=== PATIENT | male | born 1950 | race Hispanic/Latino ===

== ENCOUNTER 2019-03-14 22:26 | Emergency (ER) | payer OTHER ==
[2019-03-14] MEDS ORDERED: FENTANYL CITR 100 MCG/2 ML ONE (22:53)
[2019-03-14] MEDS ORDERED: PANTOPRAZOLE 40 MG INJ ONE (22:53)
[2019-03-14 23:33] LABS: Protime INR 2.06
[2019-03-14 23:35] LABS: Absolute Lymphocytes (CBC) 1.2 K/uL (0.7-4.9); Basophils % 1.2 % (0-1.3); Lymphocytes % 19.7 % (15.3-44.8); MPV 9.5 fL (7.6-11.3); RBC Red Blood Cell Count 4.36 M/uL (4.33-5.43)
[2019-03-14 23:52] LABS: ALT/SGPT 48 U/L (12-78); AST/SGOT 77 U/L (15-37); Albumin 2.8 g/dL (3.4-5.0); Alkaline Phosphatase 159 U/L (45-117); BUN Blood Urea Nitrogen 17 mg/dL (7-18); Bicarbonate 31 mmol/L (21-32); Bilirubin Direct 0.2 mg/dL (0-0.2); Bilirubin Total 0.3 mg/dL (0.2-1.0); Glucose Level 88 mg/dL (74-106); Lipase 191 U/L (73-393); Magnesium 2.2 mg/dL (1.8-2.4); NT PRO-BNP 714 pg/mL (<125); Protein, Total 7.1 g/dL (6.4-8.2); Sodium Level 141 mmol/L (136-145); Troponin (Emerg Dept Use Only) < 0.02 ng/mL (0.0-0.045)
--- NOTE | 2019-03-15 00:22 | EDPHYS ---
Physician Documentation [facility] Name: Crescencio Cox Sr Age: 68 yrs Sex: Male : 1950 Arrival Date: 03/14/2019 Time: 22:29 Bed 7 Private MD: ED Physician Live Gardiner HPI: 03/14 22:49 This 68 yrs old Male presents to ER via Ambulatory with complaints of Chest jr8 Pain. 22:49 The patient or guardian reports chest pain that is located primarily in the substernal jr8 area. Onset: acutely, today. The pain does not radiate. Associated signs and symptoms: The patient has no apparent associated signs or symptoms. The chest pain is described as dull. Duration: The patient or guardian reports a single episode, that is still ongoing. Modifying factors: The symptoms are alleviated by nothing. the symptoms are aggravated by nothing. Severity of pain: At its worst the pain was mild in the emergency department the pain is unchanged. It is unknown whether or not the patient has had similar symptoms in the past. The patient has not recently seen a physician. Patient stated that he had open heart surgery about 2 months ago. Had been recovering well since then. Today while sitting watching the football game started to have pain to chest without radiation, shortness of breath, sweating, or nausea. Stated that he did have some spice food tonight that he normally does not have but does not know if that is the cause or not . Historical: - Allergies: 22:53 No Known Allergies; rv - PMHx: 22:53 Aneurysm; Hypertension; High Cholesterol; rv - PSHx: 22:53 aneurysm repair; valvle replacement; rv - Immunization history:: Adult Immunizations up to date. - Social history:: Smoking status: Patient/guardian denies using tobacco, the patient reports quitting approximately 16 years ago. - Ebola Screening: : No symptoms or risks identified at this time. ROS: 22:49 Eyes: Negative for injury, pain, redness, and discharge, ENT: Negative for injury, jr8 pain, and discharge, Neck: Negative for injury, pain, and swelling, Respiratory: Negative for shortness of breath, cough, wheezing, and pleuritic chest pain, Abdomen/GI: Negative for abdominal pain, nausea, vomiting, diarrhea, and constipation, Back: Negative for injury and pain, MS/Extremity: Negative for injury and deformity, Skin: Negative for injury, rash, and discoloration, Neuro: Negative for headache, weakness, numbness, tingling, and seizure. 22:49 Cardiovascular: Positive for chest pain, Negative for edema, orthopnea, palpitations, paroxysmal nocturnal dyspnea. Exam: 22:49 Eyes: Pupils equal round and reactive to light, extra-ocular motions intact. Lids and jr8 lashes normal. Conjunctiva and sclera are non-icteric and not injected. Cornea within normal limits. Periorbital areas with no swelling, redness, or edema. ENT: Nares patent. No nasal discharge, no septal abnormalities noted. Tympanic membranes are normal and external auditory canals are clear. Oropharynx with no redness, swelling, or masses, exudates, or evidence of obstruction, uvula midline. Mucous membranes moist. Neck: Trachea midline, no thyromegaly or masses palpated, and no cervical lymphadenopathy. Supple, full range of motion without nuchal rigidity, or vertebral point tenderness. No Meningismus. Cardiovascular: Regular rate and rhythm with a normal S1 and S2. No gallops or rubs. Systolic murmur present best heard at the left sternal border 2nd ICS. Normal PMI, no JVD. No pulse deficits. Respiratory: Lungs have equal breath sounds bilaterally, clear to auscultation and percussion. No rales, rhonchi or wheezes noted. No increased work of breathing, no retractions or nasal flaring. Back: No spinal tenderness. No costovertebral tenderness. Full range of motion. MS/ Extremity: Pulses equal, no cyanosis. Neurovascular intact. Full, normal range of motion. Neuro: Awake and alert, GCS 15, oriented to person, place, time, and situation. Cranial nerves II-XII grossly intact. Motor strength 5/5 in all extremities. Sensory grossly intact. Cerebellar exam normal. Normal gait. 22:49 Chest/axilla: Inspection: incisional scar present, Palpation: tenderness, that is mild, that does not reproduce the patient's complaints. 22:49 Abdomen/GI: Inspection: abdomen appears normal, Bowel sounds: active, all quadrants, Palpation: soft, in all quadrants, mild abdominal tenderness, in the epigastric area, mass, is not appreciated, rebound tenderness, is not appreciated, voluntary guarding, is not appreciated, involuntary guarding, is not appreciated, no appreciated organomegaly, Indicators: McBurney's point is not tender, Waite's sign is negative, Rovsing's sign is negative, Liver: tenderness, is not appreciated, Pain to epigastric region is reproducing pain that patient has been feeling in chest region . 22:49 Skin: Appearance: Color: pale, Temperature: cool, Moisture: normal moisture, petechiae, not noted, ecchymosis, not noted. Vital Signs: 22:40 BP 135 / 85; Pulse 85; Resp 18; Pulse Ox 100% ; ea 22:46 Temp 97.5; ea 22:54 Weight 83.91 kg; Height 6 ft. 2 in. (187.96 cm); rv 23:30 BP 103 / 69; Pulse 88; Resp 18; Pulse Ox 99% ; ea 03/15 00:36 BP 108 / 74; Pulse 93; Resp 16; Pulse Ox 98% on R/A; ao 03/14 22:54 Body Mass Index 23.75 (83.91 kg, 187.96 cm) rv MDM: 03/14 22:34 Patient medically screened. jr8 03/15 00:16 Data reviewed: vital signs, nurses notes, lab test result(s), EKG, radiologic studies, jr8 plain films. Data interpreted: Pulse oximetry: on room air is 99 %. Interpretation: normal. Counseling: I had a detailed discussion with the patient and/or guardian regarding: the historical points, exam findings, and any diagnostic results supporting the discharge/admit diagnosis, lab results, radiology results, the need for outpatient follow up, a enterprise engineer, to return to the emergency department if symptoms worsen or persist or if there are any questions or concerns that arise at home. ED course: Patient post treatment has complete resolution of symptoms. Discussed negative findings on labs and ECG. That he does have Left pleural effusion present. Patient stated that he has had two pleural effusions in the past that required pleuracentesis. Denies shortness of breath at this time. Patient has CT surgery appointment in the AM. Will d/c home to f/u with him. Gave blood work and images to show him tomorrow. Strict return precautions given if patient were to have CP or cardiac equivalent pain again. Patient understood all instructions . 03/14 22:34 Order name: Basic Metabolic Panel; Complete Time: 23:54 8 03/14 22:34 Order name: CBC with Diff; Complete Time: 23:42 jr8 03/14 22:34 Order name: LFT's; Complete Time: 23:54 jr8 03/14 22:34 Order name: Magnesium; Complete Time: 23:54 8 03/14 22:34 Order name: NT PRO-BNP; Complete Time: 23:54 8 03/14 22:34 Order name: PT-INR; Complete Time: 23:42 8 03/14 22:34 Order name: Troponin (emerg Dept Use Only); Complete Time: 23:54 jr8 03/14 22:34 Order name: XRAY Chest (1 view) [facility] 03/14 22:34 Order name: EKG; Complete Time: 22:35 [facility] 03/14 22:47 Order name: Lipase 03/14 23:23 Order name: Lipase; Complete Time: 23:54 EDIN 03/14 22:34 Order name: Cardiac monitoring; Complete Time: 22:40 [facility] 03/14 22:34 Order name: EKG - Nurse/Tech; Complete Time: 22:40 8 03/14 22:34 Order name: IV Saline Lock; Complete Time: 22:46 8 03/14 22:34 Order name: Labs collected and sent; Complete Time: 22:47 8 03/14 22:34 Order name: O2 Per Protocol; Complete Time: 22:40 [facility] 03/14 22:34 Order name: O2 Sat Monitoring; Complete Time: 22:40 jr8 Administered Medications: 03/14 23:02 Drug: fentaNYL (PF) 25 mcg {Note: RASS 0.} Route: IVP; Site: right antecubital; ea 23:40 Follow up: Response: No adverse reaction; Pain is decreased; RASS: Alert and Calm (0) ea 23:03 Drug: ProTONIX 40 mg Route: IVP; Site: right antecubital; ea 23:41 Follow up: Response: No adverse reaction ea Disposition: 03/15 02:09 Co-signature as Attending Physician, Liev Gardiner MD did not see or evaluate patient. ps1 Signing chart for administrative purposes. Not an endorsement of care. . Disposition: 03/15/19 00:20 Discharged to Home. Impression: Chest pain, unspecified. - Condition is Stable. - Discharge Instructions: Nonspecific Chest Pain, Pleural Effusion. - Medication Reconciliation Form, Thank You Letter, Antibiotic Education, Prescription Opioid Use form. - Follow up: Private Physician; When: Tomorrow; Reason: Recheck today's complaints, Continuance of care, Re-evaluation by your physician. - Problem is new. - Symptoms have improved. Signatures: Dispatcher [employer] [facility] Mckay Menchaca PA PA jr8 Wolf Wharton, RN RN Charu Henderson RN RN ea Singer, Phillip, MD MD ps1 Vicente, Ronaldo, RN RN rv Corrections: (The following items were deleted from the chart) 03/14 23:23 22:48 LIPASE+C.LAB.BRZ ordered. [facility] 03/15 00:39 00:20 03/15/2019 00:20 Discharged to Home. Impression: Chest pain, unspecified. ao Condition is Stable. Forms are Medication Reconciliation Form, Thank You Letter, Antibiotic Education, Prescription Opioid Use. Follow up: Private Physician; When: Tomorrow; Reason: Recheck today's complaints, Continuance of care, Re-evaluation by your physician. Problem is new. Symptoms have improved. jr8
--- NOTE | 2019-03-15 00:22 | ER ---
Nurse's Notes [facility] Name: Crescencio Cox Sr Age: 68 yrs Sex: Male : 1950 Arrival Date: 03/14/2019 Time: 22:29 Bed 7 Private MD: Diagnosis: Chest pain, unspecified Presentation: 03/14 22:39 Presenting complaint: Patient states: chest pain started an hour ago. could not rv describe the kind of pain. Transition of care: patient was not received from another setting of care. Onset of symptoms was March 14, 2019 at 21:40. Risk Assessment: Do you want to hurt yourself or someone else? Patient reports no desire to harm self or others. Initial Sepsis Screen: Does the patient meet any 2 criteria? No. Patient's initial sepsis screen is negative. Does the patient have a suspected source of infection? No. Patient's initial sepsis screen is negative. Care prior to arrival: None. 22:39 Method Of Arrival: Ambulatory rv 22:39 Acuity: KULWANT 3 rv Historical: - Allergies: 22:53 No Known Allergies; rv - PMHx: 22:53 Aneurysm; Hypertension; High Cholesterol; rv - PSHx: 22:53 aneurysm repair; valvle replacement; rv - Immunization history:: Adult Immunizations up to date. - Social history:: Smoking status: Patient/guardian denies using tobacco, the patient reports quitting approximately 16 years ago. - Ebola Screening: : No symptoms or risks identified at this time. Screenin:46 Abuse screen: Denies threats or abuse. Nutritional screening: No deficits noted. ea Tuberculosis screening: No symptoms or risk factors identified. Fall Risk IV access (20 points). Assessment: 23:00 General: Appears in no apparent distress. Behavior is calm. Pain: Complains of pain in ea epigastric area Pain does not radiate. Pain began 1 hour ago. Neuro: Level of Consciousness is awake, alert, obeys commands, Oriented to person, place, time, situation. Cardiovascular: Patient's skin is warm and dry. Respiratory: Airway is patent Respiratory effort is even, unlabored, Respiratory pattern is regular, symmetrical. Derm: Skin is dry, Skin is pale, Skin temperature is warm. 03/15 00:36 Reassessment: DC instructions given to Patient and patient agree with POC and to follow ao up with PCP and cardiology. Pt had no other questions at this time. Vital Signs: 03/14 22:40 BP 135 / 85; Pulse 85; Resp 18; Pulse Ox 100% ; ea 22:46 Temp 97.5; ea 22:54 Weight 83.91 kg; Height 6 ft. 2 in. (187.96 cm); rv 23:30 BP 103 / 69; Pulse 88; Resp 18; Pulse Ox 99% ; ea 03/15 00:36 BP 108 / 74; Pulse 93; Resp 16; Pulse Ox 98% on R/A; ao 03/14 22:54 Body Mass Index 23.75 (83.91 kg, 187.96 cm) rv ED Course: 03/14 22:29 Patient arrived in ED. ag3 22:34 Mckay Menchaca PA is PHCP. jr8 22:34 Live Gardiner MD is Attending Physician. jr8 22:39 Anatoliy Wahl, ALBERTO is Primary Nurse. rv 22:40 Wolf Wharton, ALBERTO is Primary Nurse. ao 22:40 Triage completed. rv 22:46 Patient maintains SpO2 saturation greater than 95% on room air. ea 22:47 part time on. Pulse ox on. NIBP on. ea 22:47 Arm band placed on right wrist. Patient placed in an exam room, on a stretcher, on ea pulse oximetry. 22:47 Patient has correct armband on for positive identification. Bed in low position. Call ea light in reach. Side rails up X2. 22:55 XRAY Chest (1 view) In Process Unspecified. EDMS 23:00 Inserted saline lock: 20 gauge in right antecubital area, using aseptic technique. ao Blood collected. 03/15 00:38 No provider procedures requiring assistance completed. IV discontinued, intact, ao bleeding controlled, No redness/swelling at site. Pressure dressing applied. Administered Medications: 03/14 23:02 Drug: fentaNYL (PF) 25 mcg {Note: RASS 0.} Route: IVP; Site: right antecubital; ea 23:40 Follow up: Response: No adverse reaction; Pain is decreased; RASS: Alert and Calm (0) ea 23:03 Drug: ProTONIX 40 mg Route: IVP; Site: right antecubital; ea 23:41 Follow up: Response: No adverse reaction ea Outcome: 03/15 00:20 Discharge ordered by MD. hinojosa 00:38 Discharged to home ambulatory. ao 00:38 Condition: stable 00:38 Discharge instructions given to patient, Instructed on discharge instructions, follow up and referral plans. Demonstrated understanding of instructions, follow-up care, medications. 00:39 Patient left the ED. ao Signatures: Dispatcher [employer] EDMS Mckay Menchaca PA PA jr8 Ortiz, Alex, RN RN ao Antunez, Elena RN Anatoliy Bailey ea, RN Mary Hammer
[2019-03-15 01:49] VITALS: TEMP 97.5
[2019-03-15 01:51] VITALS: BP 108/74; O2SAT 98
--- NOTE | 2019-03-15 08:10 | RAD REPORT ---
EXAM DESCRIPTION: RAD - Chest Single View - 03/14/2019 10:57 pm CLINICAL HISTORY: CHEST PAIN Chest pain. COMPARISON: No comparisons FINDINGS: Portable technique limits examination quality. Haziness is present in the left lung base likely representing a moderate-size left lower lobe infiltr ate with pleural effusion. The heart is likely enlarged with changes of a prior CABG. No displaced fr actures.
--- NOTE | 2019-03-15 20:48 | EKG ---
Test Date: 2019-03-14 Test Time: 22:39:34 Live Ammunition Inspector: LIYAH MEASUREMENT RESULTS: Intervals: Rate: 86 PA: 198 QRSD: 94 QT: 384 QTc: 459 [place]: P: 76 PA: 198 QRS: 81 T: 42 INTERPRETIVE STATEMENTS: Normal sinus rhythm Normal ECG No previous ECG available for comparison Electronically Signed On 03-15-19 20:46:45 SOFTWARE PACKAGING ENGINEER by Uil Li
== END 2019-03-15 00:39 | disposition home or self-care (01) ==
LOC: ER 22:26
DX: R07.9 Chest pain, unspecified (principal); I10 Essential (primary) hypertension; Z95.4 Presence of other heart-valve replacement
CPT/HCPCS: 93005; 85025; 80048; 36415; 83735; 85610; 80076; 84484; 83690; 83880; 71045; 96375; 96374; 99285; C9113; J3010

== ENCOUNTER 2019-04-27 17:07 | Emergency (ER) | payer OTHER ==
[2019-04-27] MEDS ORDERED: ETOMIDATE 20 MG/10 ML VIAL IV ONE (17:08)
[2019-04-27] MEDS ORDERED: SUCCINYLCHOLINE 20 MG/ML (10 ML) IV ONE (17:08)
[2019-04-27] MEDS ORDERED: ASPIRIN 81 MG CHEWABLE TABLET ONE (17:15)
[2019-04-27] MEDS ORDERED: MORPHINE 4 MG/ML SYR ONE (17:33)
[2019-04-27] MEDS ORDERED: ONDANSETRON 4 MG/2 ML VIAL ONE (17:33)
[2019-04-27 17:34] LABS: Absolute Lymphocytes (CBC) 1.8 K/uL (0.7-4.9); Basophils % 1.1 % (0-1.3); Hematocrit 38.5 % (39.6-49.0); Lymphocytes % 16.8 % (15.3-44.8); MPV 8.8 fL (7.6-11.3); RBC Red Blood Cell Count 4.95 M/uL (4.33-5.43)
[2019-04-27 17:41] LABS: Protime INR 1.63
[2019-04-27 17:56] LABS: Albumin 3.4 g/dL (3.4-5.0); Bilirubin Direct 0.1 mg/dL (0-0.2); Bilirubin Total 0.3 mg/dL (0.2-1.0); Magnesium 2.2 mg/dL (1.8-2.4); Potassium 3.5 mmol/L (3.5-5.1); Protein, Total 7.9 g/dL (6.4-8.2); Troponin (Emerg Dept Use Only) 0.07 ng/mL (0.0-0.045)
--- NOTE | 2019-04-27 18:05 | RAD REPORT ---
EXAM DESCRIPTION: CT - Angio Aorta For Dissection - 04/27/2019 5:50 pm CLINICAL HISTORY: r/o dissection, hx of aortic aneurysm repair COMPARISON: None. TECHNIQUE: Dynamically enhanced 3 mm thick images of the chest, abdomen, and upper pelvis were obtai paris during administration of approximately 150mL Isovue 370 IV contrast. Sagittal and coronal reconst ruction images were generated using MIP and reviewed. Exam utilizes a protocol to evaluate entire cou rse of the aorta. All CT scans are performed using dose optimization technique as appropriate and may include automated exposure control or mA/KV adjustment according to patient size. FINDINGS: Aortic valve surgical replacement changes are present. There are postsurgical changes to t he root of the aorta and cardiac bypass changes. Sternotomy wires are in place. Soft tissue surrounds the root of the aorta believed to be postsurgical change. There is no extravasation of contrast. Byp ass artery extending off of the right-side of the repaired aortic root shows no stenosis. Aortic arch is normal in diameter. Three vessel configuration noted with no great vessel origins sten oses. Vertebral artery origins are unremarkable as well. The thoracic and abdominal aorta are without stenosis, dissection or acute finding. Atherosclerotic changes are mild. Pulmonary arteries are normal as well. Heart size is prominent. No pericardial effusion. Lung parenchymal opacification posterior gutter on the left is favored to be atelectasis rather than pneumonia. Interstitial and alveolar opacities are scattered throughout the remainder of the lung fie lds. A small left pleural effusion is present. No right-sided pleural effusion. No pneumothorax. No abnormal mediastinal or hilar mass or lymphadenopathy seen. No chest wall mass or abnormal axillar y lymphadenopathy. Celiac, superior mesenteric and inferior mesenteric arteries are normal. The liver and pancreas show no suspicious findings. No gallbladder or biliary tree abnormality. Heterogeneous enhancement of the spleen is noted. This is not uncommon on a CT angio study. Both kidneys show heterogeneous enhancement with numerous areas of diminished enhancement in the aditya pheral cortex. Single renal artery supply each kidney an are normal in appearance. No mass or abnorm al lymphadenopathy. Stomach is distended but not dilated with food and fluid. Large and small bowel are not dilated. Sigm oid diverticulosis is present without diverticulitis. No free air, free fluid or inflammatory strandi ng. No urinary bladder abnormality. Disc and bony degenerative changes are present. No acute or path ologic bone process. IMPRESSION: No acute aortic abnormality identifiable. Postsurgical changes are noted from aortic enid ve replacement and there are surgical changes evident near the root of the aorta. Soft tissue attenuation surrounding the root of the aorta is suspected to be chronic. There is no ext ravasation of contrast. The bypass vessel extending from the right lateral aortic root shows no suspi cious finding. Atelectasis versus pneumonia posterior gutter on the left. There is a small left pleural effusion. Interstitial and alveolar opacities scattered throughout the lung nelson. Collective findings favor a failure or volume overload pattern. Heterogeneity of the renal parenchymal enhancement. Renal arteries are normal. This could be bilatera l pyelonephritis or could be hypoperfusion from diminished cardiac function. No other significant findings on chest, abdomen and upper pelvis examination.
--- NOTE | 2019-04-27 18:06 | RAD REPORT ---
EXAM DESCRIPTION: RAD - Chest Single View - 04/27/2019 5:34 pm CLINICAL HISTORY: CHEST PAIN COMPARISON: Chest Single View dated 03/14/2019Portable March 14, 2019 TECHNIQUE: AP portable chest image was obtained 04/27/2019 5:34 pm . FINDINGS: Lungs are underinflated compared to the prior examination. Interstitial and alveolar opaci ties are scattered in the lung nelson. Heart size normal for portable imaging. Vasculature not outsid e of normal range. Trachea is midline. Sternotomy wires are in place. Cardiac valve surgical changes noted. No pneumothorax present. Small left pleural effusions suspected with left base atelectasis and /or infiltrate. No acute bony abnormality seen. No acute aortic findings suspected. IMPRESSION: Interstitial and alveolar opacities are present. This could be failure or volume overloa d. Small left pleural effusion with infiltrate and/ or atelectasis left base.
[2019-04-27] MEDS ORDERED: RSI MEDICATION KIT IV ONE (18:09)
[2019-04-27] MEDS ORDERED: HEPARIN 5000 UNIT/ML 1 ML VIAL ONE (18:20)
[2019-04-27] MEDS ORDERED: HEPARIN/D5W 25,000 UNIT/500 ML BAG IV ONE (18:20)
[2019-04-27] MEDS ORDERED: MIDAZOLAM HCL 2 MG/2 ML INJ ONE (18:22)
[2019-04-27] MEDS ORDERED: NA CHLORIDE 0.9% 2,000 ML ONE (18:22)
[2019-04-27] MEDS ORDERED: propofoL 1,000 MG/100 ML VIAL IV ONE (18:29)
[2019-04-27] MEDS ORDERED: FENTANYL CITR 100 MCG/2 ML ONE (18:29)
--- NOTE | 2019-04-27 18:36 | ER ---
Nurse's Notes [facility] Name: Crescencio Cox Sr Age: 68 yrs Sex: Male : 1950 Arrival Date: 04/27/2019 Time: 17:09 Bed 4 Private MD: Diagnosis: Acute pulmonary edema;ST elevation (STEMI) myocardial infarction of inferior wall;Acute respiratory failure Presentation: 04/27 17:20 Presenting complaint: Patient states: Chest pain started about 10 minutes ago. ca1 Complains of severe nausea and dizzziness. Transition of care: patient was not received from another setting of care. Onset of symptoms was April 27, 2019. Risk Assessment: Do you want to hurt yourself or someone else? Patient reports no desire to harm self or others. Initial Sepsis Screen: Does the patient meet any 2 criteria? No. Patient's initial sepsis screen is negative. Does the patient have a suspected source of infection? No. Patient's initial sepsis screen is negative. Care prior to arrival: None. 17:20 Method Of Arrival: Wheelchair ca1 17:20 Acuity: KULWANT 1 ss Triage Assessment: 17:20 General: Appears distressed, uncomfortable, Behavior is cooperative, appropriate for bp age, anxious, PT MOVED FROM RM 28 FOR ACUITY. CONCERNING EKG CHANGES NOTED ON MONITOR. Pain: Complains of pain in chest. EENT: No deficits noted. Neuro: No deficits noted. Cardiovascular: Rhythm is irregular. Respiratory: Airway is patent Respiratory effort is even, unlabored. GI: No signs and/or symptoms were reported involving the gastrointestinal system. : No signs and/or symptoms were reported regarding the genitourinary system. Derm: No deficits noted. Musculoskeletal: No deficits noted. Historical: - Allergies: 18:21 No Known Allergies; ss - PMHx: 17:21 Aneurysm; High Cholesterol; Hypertension; ca1 - PSHx: 17:21 aneurysm repair; valvle replacement; ca1 - Immunization history:: Adult Immunizations unknown. - Coronavirus screen:: The patient has NOT traveled to [place], [place], or [place] in the past 14 days. The patient has NOT had contact with known/suspected case of Coronavirus?. - Family history:: not pertinent. - Social history:: Smoking status: unknown. - Hospitalizations: : No recent hospitalization is reported. - Ebola Screening: : Patient negative for fever greater than or equal to 101.5 degrees Fahrenheit, and additional compatible Ebola Virus Disease symptoms Patient denies exposure to infectious person Patient denies travel to an Ebola-affected area in the 21 days before illness onset No symptoms or risks identified at this time. Screenin:21 Abuse screen: Denies threats or abuse. Denies injuries from another. Nutritional bp screening: No deficits noted. Tuberculosis screening: No symptoms or risk factors identified. Fall Risk None identified. Assessment: 17:10 Reassessment: pt is in distress right now, IV established, EKG performed x2 Dr. Mason ch notified. Charge nurse notified. family friend contacted. pt is very poor historian, states he thinks he is dying and cannot remember. pt denies taking blood thinners, but doesn't know. 17:21 General: SEE TRIAGE NOTE. bp 17:33 Reassessment: PT TO CT WITH RN AND TECH. bp 17:40 Reassessment: Pt's friend reports pt takes Coumadin, Dr. Mason was notified. . aa5 17:49 Reassessment: Transfer initiated with [facility]. 17:59 Reassessment: EKG faxed to [employer] Deburrer at [facility] and chemical laboratory assistant as requested by transfer center. 18:12 Reassessment: setup for intubation, provider at bedside. em 18:20 Reassessment: Life Flight ETA 20 minutes. Attempted to call report to [facility] ss chemical laboratory assistant who is requesting to call back again in approx 5 minutes. 18:30 Reassessment: Pt is sedated and intubated, assisted ventilations via ventilator. Pt aa5 being continuously suctioned by RT at bedside, large amount of pink frothy secretions noted by RT. Pt's fingers are cyanotic, feet are cyanotic, pt's skin is cool/dry. . 18:34 Reassessment: Report given to ALBERTO Gay. 19:00 Reassessment: report given to life flight, pt intubated and sedated. em 04/28 00:30 Pain: Pain does not radiate. Pain began suddenly. 00:31 Reassessment: pt moved to room 4 due to critical condition. report given to eulalio and perry ho. Vital Signs: 02/04 17:05 BP 125 / 88; Pulse 122; Resp 40; Pulse Ox 89% on R/A; Pain 10/10; ch 17:25 BP 110 / 78; Pulse 105; Resp 39; Pulse Ox 93% on 4 lpm NC; ss 17:29 BP 102 / 74; Pulse 112; Resp 30; Temp 97.5; Pulse Ox 92% ; bp 17:37 BP 101 / 64; Pulse 110; Resp 28 S; Pulse Ox 96% on Nebulizer Mask; em 17:55 BP 106 / 56; Pulse 113; Resp 24; Pulse Ox 97% on Nebulizer Mask; em 17:55 BP 94 / 74; Pulse 132; Resp 20 A; Pulse Ox 97% on 100% FiO2 ETT vent; em 18:25 BP 104 / 91; Pulse 124; Pulse Ox 97% on 100% FiO2 ETT vent; em 18:30 BP 95 / 78; Pulse 136; Resp 20 A; Temp 98.8(C); Pulse Ox 100% on 100% FiO2 ETT vent; em 18:36 BP 93 / 70; Pulse 134; Resp 19 A; em 18:38 Weight 80 kg; ss 18:39 BP 93 / 70; Pulse 135; Resp 20 A; Temp 98.6(C); Pulse Ox 100% on 100% FiO2 ETT vent; em 18:45 BP 95 / 78; Pulse 134; Resp 18; Pulse Ox 100% on 100% FiO2 ETT vent; em 18:54 BP 98 / 87; Pulse 128; Resp 20 A; Temp 99.0(C); Pulse Ox 100% on 100% FiO2 ETT vent; em 19:00 BP 95 / 81; Pulse 129; Resp 20 A; Pulse Ox 100% on 100% FiO2 ETT vent; em ED Course: 17:05 EKG completed in triage. Results shown to MD. ch 17:09 Patient arrived in ED. mr 17:18 Judy Oneill, RN is Primary Nurse. ch 17:21 Triage completed. ca1 17:21 Arm band placed on right wrist. EKG completed in triage. Results shown to MD. ca1 17:21 Patient has correct armband on for positive identification. Bed in low position. Call bp light in reach. Side rails up X2. boot turner on. Pulse ox on. NIBP on. 17:21 Inserted saline lock: 18 gauge in left antecubital area, using aseptic technique. Blood bp collected. Oxygen administration via nasal cannula \T\ 4L/min. 17:24 Ayush Mason MD is Attending Physician. rn 17:25 Inserted saline lock: 20 gauge in right forearm, using aseptic technique. Blood bp collected. 17:37 XRAY Chest (1 view) In Process Unspecified. EDMS 18:02 Angio Aorta For Dissection In Process Unspecified. EDMS 18:15 Malloy cath inserted, using sterile technique, 16 Fr., by me, balloon inflated, to bp gravity drainage, Patient tolerated well. 18:15 Assisted provider with central line placement. Set up central line tray. Triple lumen bp line placed in right femoral. Line placed by Ayush Mason MD Placement verified by blood return, Dressed with Tegaderm, Patient tolerated well. Before procedure, did Practitioner(s) obtain informed consent? No. Patient \T\ family education about procedure, CLABSI prevention and S/S of infection? No. Time-out/Briefing performed prior to start of procedure? Yes. Was handwashing/sanitizing done immediately prior to procedure? Yes. Was patient positioned to in a way to prevent air embolism? Yes. Was procedure site sterilized? Yes, with chlorhexidine. Was the site allowed to dry? Yes. Was local anesthetic and/or sedation utilized? Yes. During the procedure, did the Practitioner(s) maintain a sterile field? Yes. Were unused ports clamped during insertion? Yes. Was a 2nd qualified MD obtained after 3 unsuccessful insertion attempts? N/A. Was blood aspirated from each lumen? Yes. After the procedure, did the Practitioner(s) clean the site and apply a sterile dressing? Yes. Assisted provider with intubation using 7.5 mm ETT via oral route. ET tube secured at 23cm at the teeth. Set up intubation tray. Intubated by Ayush Mason MD Placement verified by CO2 detector w/ + color change, auscultating bilateral breath sounds, Patient tolerated well. 19:19 Patient transferred, IV remains in place. em Administered Medications: 17:21 Drug: Aspirin Chewable Tablet 324 mg Route: PO; vc 17:34 Follow up: Response: No adverse reaction bp 17:29 Drug: Zofran 4 mg Route: IVP; Site: right antecubital; ss 17:33 Follow up: Response: No adverse reaction bp 17:32 Drug: morphine 4 mg Route: IVP; Site: right antecubital; ss 17:34 Follow up: Response: Pain is decreased bp 18:13 Drug: Etomidate 20 mg Route: IVP; Site: left antecubital; em 19:18 Follow up: Response: No adverse reaction em 18:14 Drug: Succinylcholine 100 mg Route: IVP; Site: left antecubital; em 19:18 Follow up: Response: No adverse reaction em 18:15 Drug: Heparin (SC-Bolus No thrombolytic) - HEParin 60 units/kg {Co-Signature: aa5 ss (Ayanna Paulino RN).} Route: IVP; Site: right antecubital; 19:18 Follow up: Response: No adverse reaction em 18:15 Drug: Heparin (SC-Bolus No thrombolytic) - HEParin 60 units/kg {Co-Signature: aa5 ss (Ayanna Paulino RN).} {Note: administered 5000 units per MD.} Route: IVP; Site: right antecubital; 18:21 Drug: Versed 2 mg Route: IVP; Site: left antecubital; em 19:18 Follow up: Response: No adverse reaction em 18:30 Drug: NS 0.9% 500 ml Route: IV; Rate: bolus; Site: left antecubital; em 19:18 Follow up: IV Status: Completed infusion; IV Intake: 500ml em 18:38 Drug: Propofol 5 mcg/kg/min Route: IV; Rate: calculated rate; Site: right femoral; em 19:00 Follow up: Infusion currently at 25mcg/kg/min aa5 19:19 Follow up: IV Status: Infusion continued upon transfer em 18:42 Drug: Heparin (SC Drip) 12 units/kg/hr - (HEParin 39368 units, D5W 500 ml) em {Co-Signature: bp (Eulalio Damon RN).} Route: IV; Rate: calculated rate; Site: right femoral; 19:18 Follow up: IV Status: Infusion continued upon transfer em Intake: 19:18 IV: 500ml; Total: 500ml. em Outcome: 18:35 ER care complete, transfer ordered by MD. rn 19:19 Transferred by helicopter to [facility], Transfer form completed. em X-rays sent w/ patient. 19:19 Condition: stable 19:19 Instructed on the need for transfer, Demonstrated understanding of instructions. 19:22 Patient left the ED. em Signatures: Dispatcher [employer] Judy Saavedra, RN RN Lobo, Halle Robb, Chago, RN RN em Ayush Mason MD MD rn Calderon, Ayanna, ALBERTO RN aa5 Mara Lawson RN RN ss Nelson, ALBERTO Tsai RN bp Acob, ALBERTO Diaz RN ca1 Melisa Jean RN RN vc Ayanna Paulino RN aa5 Eulalio Damon RN bp Corrections: (The following items were deleted from the chart) 17:35 17:20 Acuity: KULWANT 2 ca1 ss 19:35 19:34 Infusion currently at 25mcg/kg/min aa5 aa5 19:37 18:30 Reassessment: Pt is sedated and intubated, assisted ventilations via ventilator. aa5 Pt being continuously suctioned by RT at bedside, large amount of pink frothy secretions noted by RT. . aa5
--- NOTE | 2019-04-27 18:36 | EDPHYS ---
Physician Documentation [facility] Name: Crescencio Cox Sr Age: 68 yrs Sex: Male : 1950 Arrival Date: 04/27/2019 Time: 17:09 Bed 4 Private MD: ED Physician Ayush Mason HPI: 04/27 17:39 This 68 yrs old Male presents to ER via Wheelchair with complaints of Chest rn Pain. 17:39 The patient or guardian reports chest pain that is located primarily in the substernal rn area. Onset: just prior to arrival. The pain does not radiate. The chest pain is described as a heaviness. Duration: The patient or guardian reports a single episode. Modifying factors: The symptoms are alleviated by nothing. the symptoms are aggravated by nothing. Severity of pain: At its worst the pain was moderate in the emergency department the pain is unchanged. The patient has not experienced similar symptoms in the past. Reports aortic aneurysm repair a few months ago, then valve replacement last month, sudden onset of chest pain, pressure, no radiation. Assoc with nausea, diaphoresis, and RLE pain. Was at rest. . Historical: - Allergies: 18:21 No Known Allergies; ss - PMHx: 17:21 Aneurysm; High Cholesterol; Hypertension; ca1 - PSHx: 17:21 aneurysm repair; valvle replacement; ca1 - Immunization history:: Adult Immunizations unknown. - Coronavirus screen:: The patient has NOT traveled to [place], [place], or [place] in the past 14 days. The patient has NOT had contact with known/suspected case of Coronavirus?. - Family history:: not pertinent. - Social history:: Smoking status: unknown. - Hospitalizations: : No recent hospitalization is reported. - Ebola Screening: : Patient negative for fever greater than or equal to 101.5 degrees Fahrenheit, and additional compatible Ebola Virus Disease symptoms Patient denies exposure to infectious person Patient denies travel to an Ebola-affected area in the 21 days before illness onset No symptoms or risks identified at this time. ROS: 17:39 Constitutional: Negative for fever, chills, and weight loss, Eyes: Negative for injury, rn pain, redness, and discharge, Neck: Negative for injury, pain, and swelling, Cardiovascular: Negative for palpitations, and edema Respiratory: Negative for shortness of breath, cough, wheezing, and pleuritic chest pain, Abdomen/GI: Negative for abdominal pain, nausea, vomiting, diarrhea, and constipation, MS/Extremity: + RLE pain Skin: Negative for injury, rash, and discoloration, Neuro: Negative for headache, weakness, numbness, tingling, and seizure. Exam: 17:39 Constitutional: This is a well developed, well nourished patient who is awake, alert, rn appears in pain Head/Face: Normocephalic, atraumatic. ENT: MMM Cardiovascular: Tachycardic, regular, intact distal pulses weak but equal Respiratory: + moderate tachypnea, coarse bilaterla breath sounds, worse on left Abdomen/GI: soft, non-tender MS/ Extremity: Pulses equal, no cyanosis. Neurovascular intact. Full, normal range of motion. Equal circumference. Neuro: Awake and alert, GCS 15, oriented to person, place, time, and situation. Cranial nerves II-XII grossly intact. Motor strength 5/5 in all extremities. Sensory grossly intact. Vital Signs: 17:05 BP 125 / 88; Pulse 122; Resp 40; Pulse Ox 89% on R/A; Pain 10/10; ch 17:25 BP 110 / 78; Pulse 105; Resp 39; Pulse Ox 93% on 4 lpm NC; ss 17:29 BP 102 / 74; Pulse 112; Resp 30; Temp 97.5; Pulse Ox 92% ; bp 17:37 BP 101 / 64; Pulse 110; Resp 28 S; Pulse Ox 96% on Nebulizer Mask; em 17:55 BP 106 / 56; Pulse 113; Resp 24; Pulse Ox 97% on Nebulizer Mask; em 17:55 BP 94 / 74; Pulse 132; Resp 20 A; Pulse Ox 97% on 100% FiO2 ETT vent; em 18:25 BP 104 / 91; Pulse 124; Pulse Ox 97% on 100% FiO2 ETT vent; em 18:30 BP 95 / 78; Pulse 136; Resp 20 A; Temp 98.8(C); Pulse Ox 100% on 100% FiO2 ETT vent; em 18:36 BP 93 / 70; Pulse 134; Resp 19 A; em 18:38 Weight 80 kg; ss 18:39 BP 93 / 70; Pulse 135; Resp 20 A; Temp 98.6(C); Pulse Ox 100% on 100% FiO2 ETT vent; em 18:45 BP 95 / 78; Pulse 134; Resp 18; Pulse Ox 100% on 100% FiO2 ETT vent; em 18:54 BP 98 / 87; Pulse 128; Resp 20 A; Temp 99.0(C); Pulse Ox 100% on 100% FiO2 ETT vent; em 19:00 BP 95 / 81; Pulse 129; Resp 20 A; Pulse Ox 100% on 100% FiO2 ETT vent; em Procedures: 18:25 Intubation: Ventilated with 100% NRB prior to procedure. O2 saturation prior to churn driller was 87 %. Intubated orally using # 4 Grabiel blade with 7.5 mm ETT. was successful on first attempt. Ventilated with Ambu bag. Tube secured with ETT meadows at right side of mouth measured 23 cm at gum. Placement verified by CXR, CO2 detector with (+) color change, auscultating bilateral breath sounds, O2 saturation after procedure was 94 %. Patient tolerated well. Central Line: the site was prepped with Betadine, in sterile fashion, a triple lumen catheter was inserted, in the right femoral vein, in 1 attempts. placement was verified, by blood return, the site was dressed with Tegaderm, using sterile technique, the patient tolerated the procedure, well. MDM: 17:24 Patient medically screened. rn 17:32 ED course: Paging Dr. Altman for STEMI. rn 17:33 ED course: Consulted with Dr. Altman, filling station laborer unavailable. . rn 17:34 ED course: Heparin and plavix being held until aortic dissection ruled out. Pt with rn pale lower extremities, recent aortic aneurysm repair a few months ago, 1 month old valve replacement, and complaining of severe RLE pain. Unable to cath here, will get emergent CT aorta, if neg heparin and TNKase. . 18:27 ED course: Consulted with cardiology at [facility], does not recommend TNKase given rn recent surgery, and on coumadin. Able to give aspirin prior to CT aorta, but not able to give plavix given respiratory failure. Heparin started. Central line placed. Awaiting lifeflight. . 19:13 Data reviewed: vital signs, nurses notes, lab test result(s), EKG, radiologic studies, tad CT scan, plain films. 04/27 17:19 Order name: Basic Metabolic Panel; Complete Time: 18:02 ch 04/27 17:19 Order name: CBC with Diff; Complete Time: 18:02 ch 04/27 17:19 Order name: LFT's; Complete Time: 18:02 ch 04/27 17:19 Order name: Magnesium; Complete Time: 18:02 ch 04/27 17:19 Order name: NT PRO-BNP; Complete Time: 18:02 ch 04/27 17:19 Order name: PT-INR; Complete Time: 18:02 ch 04/27 17:19 Order name: Troponin (emerg Dept Use Only); Complete Time: 18:02 ch 04/27 17:19 Order name: XRAY Chest (1 view); Complete Time: 18:35 ch 04/27 18:02 Order name: Angio Aorta For Dissection; Complete Time: 18:35 EDMS 04/27 17:19 Order name: EKG; Complete Time: 17:20 ch 04/27 17:19 Order name: Cardiac monitoring; Complete Time: 17:33 ch 04/27 17:19 Order name: EKG - Nurse/Tech; Complete Time: 17:34 ch 04/27 17:19 Order name: IV Saline Lock; Complete Time: 17:34 ch 04/27 17:19 Order name: Labs collected and sent; Complete Time: 17:34 ch 04/27 17:19 Order name: O2 Per Protocol; Complete Time: 17:34 ch 04/27 17:19 Order name: O2 Sat Monitoring; Complete Time: 17:34 ch Administered Medications: 17:21 Drug: Aspirin Chewable Tablet 324 mg Route: PO; vc 17:34 Follow up: Response: No adverse reaction bp 17:29 Drug: Zofran 4 mg Route: IVP; Site: right antecubital; ss 17:33 Follow up: Response: No adverse reaction bp 17:32 Drug: morphine 4 mg Route: IVP; Site: right antecubital; ss 17:34 Follow up: Response: Pain is decreased bp 18:13 Drug: Etomidate 20 mg Route: IVP; Site: left antecubital; em 19:18 Follow up: Response: No adverse reaction em 18:14 Drug: Succinylcholine 100 mg Route: IVP; Site: left antecubital; em 19:18 Follow up: Response: No adverse reaction em 18:15 Drug: Heparin (ME-Bolus No thrombolytic) - HEParin 60 units/kg {Co-Signature: aa5 ss (Ayanna Paulino RN).} Route: IVP; Site: right antecubital; 19:18 Follow up: Response: No adverse reaction em 18:15 Drug: Heparin (ME-Bolus No thrombolytic) - HEParin 60 units/kg {Co-Signature: aa5 ss (Ayanna Paulino RN).} {Note: administered 5000 units per MD.} Route: IVP; Site: right antecubital; 18:21 Drug: Versed 2 mg Route: IVP; Site: left antecubital; em 19:18 Follow up: Response: No adverse reaction em 18:30 Drug: NS 0.9% 500 ml Route: IV; Rate: bolus; Site: left antecubital; em 19:18 Follow up: IV Status: Completed infusion; IV Intake: 500ml em 18:38 Drug: Propofol 5 mcg/kg/min Route: IV; Rate: calculated rate; Site: right femoral; em 19:00 Follow up: Infusion currently at 25mcg/kg/min aa5 19:19 Follow up: IV Status: Infusion continued upon transfer em 18:42 Drug: Heparin (ME Drip) 12 units/kg/hr - (HEParin 81421 units, D5W 500 ml) em {Co-Signature: bp (Eulalio Damon RN).} Route: IV; Rate: calculated rate; Site: right femoral; 19:18 Follow up: IV Status: Infusion continued upon transfer em Disposition: 18:27 Critical Care:. rn Disposition: 04/27/19 18:35 Transfer ordered to [facility]. Diagnosis are Acute pulmonary edema, ST elevation (STEMI) myocardial infarction of inferior wall, Acute respiratory failure. - Reason for transfer: Higher level of care. - Accepting physician is DrAnna. - Condition is Serious. - Problem is new. - Symptoms have worsened. Critical care time excluding procedures: 18:27 Critical care time: Bedside Care: 25 minutes, Consultation: 5 minutes, Family rn Intervention: 5 minutes. Total time: 35 minutes Signatures: Dispatcher [employer] Judy Saavedra RN RN David Porter MD MD cha Munoz, Edgar, RN RN em Ayush Mason MD MD rn Smirch, Shelby, RN RN ss Acob, Cheryl, RN RN ca1 Melisa Jean RN RN vc Ayanna Paulino RN aa5 Eulalio Damon RN bp Ayanna Paulino RN aa5 Eulalio Damon RN bp Corrections: (The following items were deleted from the chart) 18:08 17:53 Angio Aorta For Dissection+CT.RAD.BRZ ordered. EDMS EDMS 19:22 18:35 04/27/2019 18:35 Transfer ordered to [facility]. em Diagnosis is Acute pulmonary edema; ST elevation (STEMI) myocardial infarction of inferior wall; Acute respiratory failure. Reason for transfer: Higher level of care. Accepting physician is . Condition is Serious. Problem is new. Symptoms have worsened. rn
[2019-04-27 19:50] VITALS: O2SAT 100
[2019-04-27 19:57] VITALS: TEMP 99
[2019-04-27 19:58] VITALS: BP 95/81
--- NOTE | 2019-04-28 09:11 | EKG ---
Test Date: 2019-04-27 Test Time: 18:56:55 Chemical Worker: MILADIS MEASUREMENT RESULTS: Intervals: Rate: 132 HI: 184 QRSD: 114 QT: 304 QTc: 450 [place]: P: -11 HI: 184 QRS: 47 T: 75 INTERPRETIVE STATEMENTS: Sinus tachycardia with fusion complexes Low voltage QRS Inferolateral injury pattern ACUTE [place] Abnormal ECG Compared to ECG 04/27/2019 17:17:11 Ventricular premature complex(es) now present Low QRS voltage now present Myocardial infarct finding now present Electronically Signed On 04-28-19 09:11:26 BMX RIDER by Yann Altman
--- NOTE | 2019-04-28 09:13 | EKG ---
Test Date: 2019-04-27 Test Time: 17:17:11 Truss Builder: TERESA MEASUREMENT RESULTS: Intervals: Rate: 115 NV: 174 QRSD: 132 QT: 368 QTc: 509 [place]: P: 53 NV: 174 QRS: 71 T: 97 INTERPRETIVE STATEMENTS: Sinus tachycardia with premature ventricular complexes Intraventricular conduction delay Inferior and lateral injury pattern [place] Abnormal ECG Compared to ECG 04/27/2019 17:14:53 no significant change from previous ECG Electronically Signed On 04-28-19 09:12:53 WEEKEND CAREGIVER by Yann Altman
--- NOTE | 2019-04-28 09:14 | EKG ---
Test Date: 2019-04-27 Test Time: 17:14:53 Medical Science Liaison: TERESA MEASUREMENT RESULTS: Intervals: Rate: 116 NM: 178 QRSD: 132 QT: 374 QTc: 519 [place]: P: 49 NM: 178 QRS: 69 T: 97 INTERPRETIVE STATEMENTS: Sinus tachycardia with occasional premature ventricular complexes Possible Left atrial enlargement Intraventricular conduction delay Inferior and lateral injury pattern, Acute [place] Abnormal ECG Compared to ECG 03/14/2019 22:39:34 Ventricular premature complex(es) now present Intraventricular conduction delay now present Acute [place] is now present Electronically Signed On 04-28-19 09:14:27 MEDICAL ONCOLOGY PHYSICIAN by Yann Altman
== END 2019-04-27 19:22 | disposition short-term general hospital (02) ==
LOC: ER 17:07
PROC: 06HM33Z Insertion of Infusion Device into Right Femoral Vein, Percutaneous Approach (ICD-10-PCS; principal; 2019-04-27)
DX: I21.19 ST elevation (STEMI) myocardial infarction involving other coronary artery of inferior wall (principal); J96.00 Acute respiratory failure, unspecified whether with hypoxia or hypercapnia; J81.0 Acute pulmonary edema; I10 Essential (primary) hypertension; Z95.4 Presence of other heart-valve replacement
CPT/HCPCS: 93005 ×3; 85025; 80048; 36415; 83735; 85610; 80076; 84484; 83880; 71275; 74175; 71045; 94002; 36556; Q9967; J0330; J1644; J2704; J2250; J3010; J7030; J2405; 51702; 96365; 96368; 96375; 99291